=== PATIENT | male | born 1980 | race Caucasian/White ===

== ENCOUNTER → 2017-09-29 | Outpatient (CLI) | payer BC, MEDICARE ==
[~2017-09-29] MED LIST: ARMO50TA2 PO; FLUO90CA5 PO; GADOBUTROL 10 MMOL/10 ML PFS ONE; LEVO200T PO; [UNRECOGNIZED DRUG - CODE] IM; [UNRECOGNIZED DRUG - OTHER]; growth hormone IM
== END | disposition home or self-care (01) ==
LOC: CFH 12:59
PROVIDERS: ATTEND Neurological Surgery
DX: D49.6 Neoplasm of unspecified behavior of brain (principal)
CPT/HCPCS: 70553; A9585